=== PATIENT | male | born 1940 | race Two or more races ===

== ENCOUNTER 2017-09-03 02:54 | Inpatient (IN) ==
[2017-09-03] MEDS ORDERED: SODIUM CHLORIDE 0.9% 1,000 ML IV PRN (04:16)
[2017-09-03] MEDS ORDERED: PAPAVERINE 60 MG/2 ML VIAL ONE (04:43)
[2017-09-03] MEDS ORDERED: VANCOMYCIN 1,000 MG VIAL ONE (04:44)
[2017-09-03] MEDS ORDERED: CEFUROXIME 1,500 MG VIAL ONE (05:08)
[2017-09-03] MEDS ORDERED: TRANEXAMIC ACID 1,000 MG/10 ML VIAL IV ONE (05:14)
[2017-09-03 06:19] LABS: ABG Base Excess -1.2 MMOL/L (-2.5-2.5); ABG HCO3 23.5 MMOL/L (20-26); ABG Oxygen Saturation 99.8 % (95-100); ABG PCO2 41.8 MM HG (35-48); ABG TCO2 20.7 MMOL/L (23-27); Glucose Heart Surgery 135 MG/DL (74-106); Hematocrit Heart Surgery 45.3 PERCENT (42-52); Hemoglobin Heart Surgery 14.8 G/DL (14.0-18.0); Ionized Calcium Arterial 1.15 MMOL/L (1.21-1.46); PCO2 Patient Temp Arterial 41.8 MMHG; Patient Temperature 37 CELCIUS; Potassium Heart/CVR 3.6 MMOL/L (3.5-5.1); Sodium Heart/CVR 138 MMOL/L (135-145)
[2017-09-03] MEDS ORDERED: NITROPRUSSIDE 50 MG/2 ML VIAL ONE (06:59)
[2017-09-03] MEDS ORDERED: POTASSIUM CHLORIDE RIDER 100 ML IV ONE (06:59)
[2017-09-03] MEDS ORDERED: CALCIUM CHLORIDE 1,000 MG/10 ML SYRINGE IV ONE (06:59)
[2017-09-03] MEDS ORDERED: PHENYLEPHRINE DRIP 40 MG/250 ML PREMIX IV ONE (06:59)
[2017-09-03] MEDS ORDERED: ALBUMIN 5% 12.5 GM/250 ML VIAL IV ONE (07:29)
[2017-09-03] MEDS ORDERED: MIDAZOLAM 10 MG/2 ML VIAL ONE ×2 (07:30→07:40)
[2017-09-03] MEDS ORDERED: HEPARIN/NACL 0.9% 2 UNITS/ML 1,000 ML IV ONE (07:39)
[2017-09-03] MEDS ORDERED: CALCIUM CHLORIDE 1,000 MG/10 ML VIAL IV ONE (07:39)
[2017-09-03] MEDS ORDERED: PHENYLEPHRINE DRIP 20 MG/250 ML PREMIX IV ONE (07:39)
[2017-09-03] MEDS ORDERED: VECURONIUM 10 MG VIAL IV ONE (07:40)
[2017-09-03] MEDS ORDERED: ETOMIDATE 40 MG/20 ML VIAL IV ONE (07:40)
[2017-09-03] MEDS ORDERED: MIDAZOLAM 2 MG/2 ML VIAL ONE (07:40)
[2017-09-03] MEDS ORDERED: NITROGLYCERIN DRIP 50 MG/250 ML BOTTLE IV ONE (07:41)
[2017-09-03] MEDS ORDERED: SODIUM CHLORIDE 0.9% 1,000 ML IV ONE (07:41)
[2017-09-03] MEDS ORDERED: LACTATED RINGERS 1,000 ML IV ONE (07:41)
[2017-09-03 07:44] LABS: Hematocrit Heart Surgery 19.7 PERCENT (42-52); PCO2 Patient Temp Venous 37.9 MM HG; PH Patient Temp Venous 7.428; PO2 Patient Temp Venous 46.7 MM HG; Potassium Heart/CVR 4.1 MMOL/L (3.5-5.1); VBG Base Excess 0.8 MEQ/L (0-4); VBG PCO2 37.9 MMHG (41-51); VBG PH 7.428; VBG PO2 46.7 MMHG (17-40)
[2017-09-03 07:45] LABS: Hemoglobin Heart Surgery 6.3 G/DL (14.0-18.0)
[2017-09-03 08:11] LABS: Hematocrit Heart Surgery 19.5 PERCENT (42-52); PCO2 Patient Temp Venous 33.9 MM HG; PH Patient Temp Venous 7.467; PO2 Patient Temp Venous 38.5 MM HG; Potassium Heart/CVR 4.2 MMOL/L (3.5-5.1); VBG HCO3 25.1 MEQ/L (24-28); VBG Oxygen Saturation 77.2 %; VBG PCO2 35.6 MMHG (41-51); VBG PH 7.452; VBG PO2 41.2 MMHG (17-40)
[2017-09-03 08:14] LABS: Hemoglobin Heart Surgery 6.2 G/DL (14.0-18.0)
[2017-09-03] MEDS ORDERED: DOBUTamine 500 MG/250 ML PREMIX IV ONE ×2 (08:18→09:07)
[2017-09-03] MEDS ORDERED: FAMOTIDINE 20 MG/2 ML VIAL IV ONE (08:47)
[2017-09-03] MEDS ORDERED: diphenhydrAMINE 50 MG/1 ML VIAL ONE (08:47)
[2017-09-03 09:02] LABS: ABG Base Excess -3.6 MMOL/L (-2.5-2.5); ABG HCO3 21.4 MMOL/L (20-26); ABG Oxygen Saturation 99.8 % (95-100); ABG PH 7.352 (7.35-7.45); Glucose Heart Surgery 201 MG/DL (74-106); Hematocrit Heart Surgery 28.1 PERCENT (42-52); Hemoglobin Heart Surgery 9.1 G/DL (14.0-18.0); Ionized Calcium Arterial 1.23 MMOL/L (1.21-1.46); PH Patient Temp Arterial 7.352; Patient Temperature 37 CELCIUS; Potassium Heart/CVR 3.7 MMOL/L (3.5-5.1); Sodium Heart/CVR 136 MMOL/L (135-145)
[2017-09-03] MEDS ORDERED: ALBUMIN 25% 25 GM/100 ML VIAL IV ONE (09:33)
[2017-09-03] MEDS ORDERED: MAGNESIUM SULFATE 1 GM/2 ML VIAL ONE (09:33)
[2017-09-03] MEDS ORDERED: FUROSEMIDE 20 MG/2 ML VIAL ONE (09:33)
[2017-09-03] MEDS ORDERED: DEXTROSE 5% KCL 20 MEQ 20 MEQ/1,000 ML BAG IV ONE (09:33)
[2017-09-03] MEDS ORDERED: HEPARIN 10,000 UNIT/10 ML VIAL ONE (09:33)
[2017-09-03] MEDS ORDERED: PROTAMINE SULFATE 250 MG/25 ML VIAL IV ONE (09:33)
[2017-09-03] MEDS ORDERED: SODIUM BICARBONATE 50 MEQ/50 ML SYRINGE IV ONE ×2 (09:33→16:21)
[2017-09-03] MEDS ORDERED: methylPREDNISolone SOD SUC 1,000 MG/8 ML VIAL ONE (09:33)
[2017-09-03] MEDS ORDERED: MANNITOL 12.5 GM/50 ML VIAL IV ONE (09:33)
[2017-09-03] MEDS ORDERED: PROTAMINE SULFATE 50 MG/5 ML VIAL IV ONE ×2 (09:35→09:48)
[2017-09-03] MEDS ORDERED: DEXTROSE 50% 25 GM/50 ML VIAL IV PRN ×2 (09:37)
[2017-09-03] MEDS ORDERED: MAGNESIUM SULF RIDER 4 GM in PREMIX 1 EACH IV PRN (09:37)
[2017-09-03] MEDS ORDERED: POTASSIUM CHLORIDE RIDER 10 MEQ in PREMIX 1 EACH IV PRN (09:37)
[2017-09-03] MEDS ORDERED: VECURONIUM 10 MG VIAL IV PRN ×2 (09:37)
[2017-09-03] MEDS ORDERED: ACETAMINOPHEN 650 MG SUPP RECTAL PRN (09:37)
[2017-09-03] MEDS ORDERED: INSULIN REGULAR 100 UNIT/ML IV ONE (09:37)
[2017-09-03] MEDS ORDERED: NITROPRUSSIDE 100 MG in DEXTROSE 5% 250 ML IV PRN (09:37)
[2017-09-03] MEDS ORDERED: MAGNESIUM SULF RIDER 2 GM in PREMIX 1 EACH IV PRN (09:37)
[2017-09-03] MEDS ORDERED: LACTATED RINGERS 250 ML IV PRN (09:37)
[2017-09-03] MEDS ORDERED: INSULIN REGULAR 100 UNIT/ML IV PRN (09:37)
[2017-09-03] MEDS ORDERED: MIDAZOLAM 2 MG/2 ML VIAL IV PRN (09:37)
[2017-09-03] MEDS ORDERED: PHENYLEPHRINE DRIP 40 MG/250 ML PREMIX IV PRN (09:37)
[2017-09-03] MEDS ORDERED: CALCIUM CHLORIDE 1,000 MG/10 ML SYRINGE IV PRN (09:37)
[2017-09-03] MEDS ORDERED: AMIODARONE 150 MG/3 ML VIAL ONE (09:38)
[2017-09-03] MEDS ORDERED: ePHEDrine 50 MG/ML AMP ONE (09:38)
[2017-09-03] MEDS ORDERED: SEVOFLURANE 1 UNIT/15 MINUTE INH ONE (09:38)
[2017-09-03 09:47] LABS: ABG Base Excess -3.4 MMOL/L (-2.5-2.5); ABG HCO3 21.6 MMOL/L (20-26); ABG Oxygen Saturation 99.8 % (95-100); ABG PCO2 37.3 MM HG (35-48); ABG PH 7.369 (7.35-7.45); ABG TCO2 19.9 MMOL/L (23-27); Glucose Heart Surgery 174 MG/DL (74-106); Hematocrit Heart Surgery 28.2 PERCENT (42-52); Hemoglobin Heart Surgery 9.1 G/DL (14.0-18.0)
[2017-09-03] MEDS ORDERED: INSULIN REGULAR DRIP 100 ML IV SCH (10:00)
[2017-09-03] MEDS: DOBUTamine 500 MG/250 ML PREMIX IV SCH (10:00)
[2017-09-03] MEDS: SODIUM CHLORIDE 0.45% 1,000 ML IV SCH ×2 (10:01)
[2017-09-03 10:03] LABS: Basophils % 0.2 % (0.0-0.8); Eosinophils # 0.1 10*3/uL (0.0-0.87); Eosinophils % 0.5 % (0.00-10.9); Hematocrit 27.7 VOL% (42.0-52.0); Immature Granulocytes % 0.4 %; Immature Granulocytes Absolute 0.07 #; Lymphocytes % 12.1 % (21.2-54.2); Mean Corpuscular HGB Conc 32.5 GM/DL (32-36); Mean Corpuscular Hemoglobin 30 PG (27-34); Mean Corpuscular Volume 91.4 FL (87-102); Mean Platelet Volume 11.7 FL (9.6-12.0); Monocytes # 0.7 10*3/uL (0.11-0.8); Neutrophils # 13.7 10*3/uL (1.4-7.4); Neutrophils % 82.8 % (38.7-73.9); Platelet Count 197 T/CUMM (130-400); Red Blood Count 3.03 MC/CUMM (3.8-5.5); White Blood Count 16.5 T/CUMM (4-12)
[2017-09-03 10:16] LABS: INR 1.1; PT Patient Result 11.8 SECS
[2017-09-03] MEDS: MIDAZOLAM 10 MG/2 ML VIAL IV PRN ×2 (10:30→15:10)
[2017-09-03] MEDS: POTASSIUM CHLORIDE RIDER 20 MEQ in PREMIX 1 EACH IV PRN ×4 (10:34→16:32)
[2017-09-03 10:36] LABS: Albumin 2.9 G/DL (3.4-5.0); Bilirubin,Total 0.9 MG/DL (0.2-1.0); Calcium 9.2 MG/DL (8.5-10.1); Magnesium 2.4 MG/DL (1.8-2.4); Osmolality,Calculated 284.4 MOS/KG (273-304); Potassium 4.1 MMOL/L (3.5-5.1); Total Protein 5.7 G/DL (6.4-8.3)
[2017-09-03 10:42] LABS: CKMB % 8.7 %
[2017-09-03 10:44] LABS: Troponin I Only 1.92 NG/ML (0.00-0.045)
[2017-09-03] MEDS: KETOROLAC 30 MG/1 ML VIAL IV SCH ×2 (10:52→15:54)
[2017-09-03] MEDS: LACTATED RINGERS 1,000 ML IV PRN ×3 (11:00→15:23)
[2017-09-03 11:27] LABS: ABG Base Excess -4.7 MMOL/L (-2.5-2.5); ABG HCO3 20.5 MMOL/L (20-26); ABG Oxygen Saturation 99.8 % (95-100); ABG PCO2 37.4 MM HG (35-48); ABG PH 7.346 (7.35-7.45); ABG TCO2 18.7 MMOL/L (23-27); Glucose Heart Surgery 177 MG/DL (74-106); Hematocrit Heart Surgery 30.8 PERCENT (42-52)
[2017-09-03] MEDS: ALBUMIN 5% 12.5 GM in PREMIX 1 EACH IV PRN ×4 (11:30→17:25)
[2017-09-03 11:47] LABS: VBG Base Excess -4.1 MEQ/L (0-4); VBG HCO3 20.6 MEQ/L (24-28); VBG Oxygen Saturation 68.9 %; VBG PCO2 45.6 MMHG (41-51); VBG PH 7.299
[2017-09-03 12:30] LABS: Band Neutrophils 9 % (0-10); Eosinophils 1 % (0-10); Lymphocytes 12 % (20-55); Segmented Neutrophils 76 % (50-85); Total Cells Counted 100
[2017-09-03 12:31] LABS: Hypochromasia 1+; Microcytosis 1+; Platelet Estimate Adequate
[2017-09-03] MEDS ORDERED: AMIODARONE INJ 450 MG in DEXTROSE 5% 241 ML IV SCH (14:00)
[2017-09-03 14:08] LABS: ABG Base Excess -3.2 MMOL/L (-2.5-2.5); ABG HCO3 21.8 MMOL/L (20-26); ABG Oxygen Saturation 99.2 % (95-100); ABG PCO2 37.1 MM HG (35-48); ABG PH 7.373 (7.35-7.45); Glucose Heart Surgery 136 MG/DL (74-106); Hematocrit Heart Surgery 27.8 PERCENT (42-52); Potassium Heart/CVR 4.1 MMOL/L (3.5-5.1)
[2017-09-03] MEDS: PROPOFOL 1,000 MG/100 ML BOTTLE IV SCH (15:45)
[2017-09-03 16:10] LABS: ABG Base Excess -6.2 MMOL/L (-2.5-2.5); ABG HCO3 19.4 MMOL/L (20-26); ABG Oxygen Saturation 99.1 % (95-100); ABG PCO2 39.5 MM HG (35-48); ABG PH 7.306 (7.35-7.45); Glucose Heart Surgery 137 MG/DL (74-106); Hematocrit Heart Surgery 32.6 PERCENT (42-52); Hemoglobin Heart Surgery 10.5 G/DL (14.0-18.0); Potassium Heart/CVR 4.3 MMOL/L (3.5-5.1)
[2017-09-03 17:07] LABS: ABG Base Excess -3.7 MMOL/L (-2.5-2.5); ABG HCO3 21.3 MMOL/L (20-26); ABG Oxygen Saturation 99.3 % (95-100); ABG PCO2 38.7 MM HG (35-48); ABG PH 7.352 (7.35-7.45); ABG TCO2 19.6 MMOL/L (23-27); Glucose Heart Surgery 129 MG/DL (74-106); Hematocrit Heart Surgery 31.7 PERCENT (42-52); Hemoglobin Heart Surgery 10.3 G/DL (14.0-18.0); Potassium Heart/CVR 5.4 MMOL/L (3.5-5.1)
[2017-09-03] MEDS ORDERED: FUROSEMIDE 40 MG/4 ML VIAL ONE (17:25)
[2017-09-03] MEDS: CEFUROXIME INJ 1,500 MG in SYRINGE 1 EACH IV SCH (17:33)
[2017-09-03] MEDS ORDERED: FUROSEMIDE 40 MG/4 ML VIAL IV ONE (17:34)
[2017-09-03] MEDS: MORPHINE 10 MG/1 ML VIAL IV PRN (19:36)
[2017-09-03] MEDS: AMIODARONE INJ 450 MG in DEXTROSE 5% 241 ML IV SCH (20:32)
[2017-09-03] MEDS: CHLORHEXIDINE 0.12% ORAL RINSE 60 ML BOTTLE SWISH/SPIT SCH (20:35)
[2017-09-03 20:42] LABS: CKMB % 9.7 %
[2017-09-03 20:43] LABS: Troponin I Only 7.3 NG/ML (0.00-0.045)
[2017-09-04] MEDS: PROPOFOL 1,000 MG/100 ML BOTTLE IV SCH ×4 (00:32→22:37)
[2017-09-04 03:16] LABS: ABG Base Excess -1.6 MMOL/L (-2.5-2.5); ABG HCO3 23.1 MMOL/L (20-26); ABG Oxygen Saturation 98.3 % (95-100); ABG PCO2 39.3 MM HG (35-48); ABG PH 7.388 (7.35-7.45); ABG PO2 129.7 MM HG (80-95); ABG TCO2 24.4 MMOL/L (23-27); Glucose Heart Surgery 129 MG/DL (74-106); Hemoglobin Heart Surgery 11.1 G/DL (14.0-18.0); Potassium Heart/CVR 4.5 MMOL/L (3.5-5.1)
[2017-09-04 03:32] LABS: Basophils % 0.1 % (0.0-0.8); Hematocrit 31.5 VOL% (42.0-52.0); Hemoglobin 10.5 GM/DL (14.0-18.0); Immature Granulocytes % 0.4 %; Immature Granulocytes Absolute 0.05 #; Lymphocytes # 0.9 10*3/uL (1.4-4.0); Lymphocytes % 7.2 % (21.2-54.2); Mean Corpuscular HGB Conc 33.3 GM/DL (32-36); Mean Corpuscular Hemoglobin 29 PG (27-34); Mean Corpuscular Volume 88.2 FL (87-102); Mean Platelet Volume 12.3 FL (9.6-12.0); Monocytes # 0.6 10*3/uL (0.11-0.8); Monocytes % 4.3 % (1.7-12.7); Neutrophils # 11.5 10*3/uL (1.4-7.4); Platelet Count 148 T/CUMM (130-400); Red Blood Count 3.57 MC/CUMM (3.8-5.5); Red Cell Distribution Width 15.7 % (9.3-17.3); White Blood Count 13.1 T/CUMM (4-12)
[2017-09-04 03:53] LABS: Albumin 3.8 G/DL (3.4-5.0); Bilirubin,Direct 0.48 MG/DL (0.0-0.20); Calcium 8.9 MG/DL (8.5-10.1); Magnesium 1.9 MG/DL (1.8-2.4); Osmolality,Calculated 283.4 MOS/KG (273-304); Potassium 4.5 MMOL/L (3.5-5.1)
[2017-09-04 03:54] LABS: Band Neutrophils 8 % (0-10); CKMB % 11.9 %; Lymphocytes 7 % (20-55); Platelet Estimate Normal; Segmented Neutrophils 85 % (50-85); Total Cells Counted 100
[2017-09-04 04:27] LABS: Troponin I Only 13.3 NG/ML (0.00-0.045)
[2017-09-04] MEDS: FUROSEMIDE 40 MG/4 ML VIAL IV PRN (06:09)
[2017-09-04] MEDS: CEFUROXIME INJ 1,500 MG in SYRINGE 1 EACH IV SCH ×2 (06:15→16:46)
[2017-09-04 09:23] LABS: ABG Base Excess -1.1 MMOL/L (-2.5-2.5); ABG HCO3 23.5 MMOL/L (20-26); ABG Oxygen Saturation 98.9 % (95-100); ABG PCO2 40.1 MM HG (35-48); ABG PH 7.383 (7.35-7.45); ABG TCO2 21.6 MMOL/L (23-27); Glucose Heart Surgery 140 MG/DL (74-106); Hematocrit Heart Surgery 32.4 PERCENT (42-52); Hemoglobin Heart Surgery 10.5 G/DL (14.0-18.0); Potassium Heart/CVR 4.4 MMOL/L (3.5-5.1)
[2017-09-04] MEDS: CHLORHEXIDINE 0.12% ORAL RINSE 60 ML BOTTLE SWISH/SPIT SCH ×2 (09:25→20:14)
[2017-09-04] MEDS: POTASSIUM CHLORIDE RIDER 20 MEQ in PREMIX 1 EACH IV PRN (09:28)
[2017-09-04 09:49] LABS: CKMB % 12.7 %
[2017-09-04 09:57] LABS: Troponin I Only 12.7 NG/ML (0.00-0.045)
[2017-09-04] MEDS: MORPHINE 10 MG/1 ML VIAL IV PRN (10:00)
[2017-09-04] MEDS: SODIUM CHLORIDE 0.45% 1,000 ML IV SCH ×2 (10:07→10:22)
[2017-09-04] MEDS: AMIODARONE INJ 450 MG in DEXTROSE 5% 241 ML IV SCH (10:11)
[2017-09-04] MEDS: INSULIN REGULAR 100 UNIT/ML SUBCUT SCH ×3 (12:24→20:14)
[2017-09-04] MEDS ORDERED: DEXMEDETOMIDINE 200 MCG in SODIUM CHLORIDE 0.9% 48 ML IV SCH (12:30)
[2017-09-04] MEDS: DOBUTamine 500 MG/250 ML PREMIX IV SCH (12:35)
[2017-09-04] MEDS ORDERED: FUROSEMIDE 40 MG/4 ML VIAL IV ONE (18:34)
[2017-09-04] MEDS ORDERED: FUROSEMIDE 40 MG/4 ML VIAL IV PRN (18:35)
[2017-09-05] MEDS: INSULIN REGULAR 100 UNIT/ML SUBCUT SCH ×6 (00:54→20:13)
[2017-09-05] MEDS: AMIODARONE INJ 450 MG in DEXTROSE 5% 241 ML IV SCH (01:57)
[2017-09-05 04:24] LABS: ABG Base Excess -0.6 MMOL/L (-2.5-2.5); ABG Oxygen Saturation 98.8 % (95-100); ABG PCO2 40.2 MM HG (35-48); ABG PH 7.389 (7.35-7.45); ABG TCO2 21.9 MMOL/L (23-27); Basophils % 0.1 % (0.0-0.8); Glucose Heart Surgery 138 MG/DL (74-106); Hematocrit 30.7 VOL% (42.0-52.0); Hematocrit Heart Surgery 33.6 PERCENT (42-52); Hemoglobin Heart Surgery 10.9 G/DL (14.0-18.0); Immature Granulocytes % 0.8 %; Immature Granulocytes Absolute 0.12 #; Lymphocytes # 1.1 10*3/uL (1.4-4.0); Lymphocytes % 7.2 % (21.2-54.2); Mean Corpuscular HGB Conc 32.6 GM/DL (32-36); Mean Corpuscular Hemoglobin 29 PG (27-34); Mean Corpuscular Volume 89.5 FL (87-102); Mean Platelet Volume 12.6 FL (9.6-12.0); Monocytes # 1.2 10*3/uL (0.11-0.8); Monocytes % 8.1 % (1.7-12.7); Neutrophils # 12.5 10*3/uL (1.4-7.4); Neutrophils % 83.8 % (38.7-73.9); Platelet Count 137 T/CUMM (130-400); Potassium Heart/CVR 4.4 MMOL/L (3.5-5.1); Red Blood Count 3.43 MC/CUMM (3.8-5.5); Red Cell Distribution Width 16.2 % (9.3-17.3); White Blood Count 14.9 T/CUMM (4-12)
[2017-09-05 04:44] LABS: Albumin 3.4 G/DL (3.4-5.0); Bilirubin,Direct 0.22 MG/DL (0.0-0.20); Bilirubin,Total 0.5 MG/DL (0.2-1.0); Calcium 8.4 MG/DL (8.5-10.1); Osmolality,Calculated 286.4 MOS/KG (273-304); Potassium 4.6 MMOL/L (3.5-5.1)
[2017-09-05] MEDS: ONDANSETRON 4 MG/2 ML VIAL IV PRN (04:46)
[2017-09-05] MEDS: MORPHINE 10 MG/1 ML VIAL IV PRN ×6 (04:47→17:07)
[2017-09-05] MEDS: CEFUROXIME INJ 1,500 MG in SYRINGE 1 EACH IV SCH ×2 (05:28→17:11)
[2017-09-05] MEDS: FUROSEMIDE 40 MG/4 ML VIAL IV PRN (05:29)
[2017-09-05] MEDS: PROPOFOL 1,000 MG/100 ML BOTTLE IV SCH ×4 (05:36→20:47)
[2017-09-05] MEDS: ASPIRIN CHEW 81 MG TABLET PO SCH (08:13)
[2017-09-05] MEDS: CHLORHEXIDINE 0.12% ORAL RINSE 60 ML BOTTLE SWISH/SPIT SCH ×2 (08:20→21:06)
[2017-09-05 10:30] LABS: ABG Base Excess 1.2 MMOL/L (-2.5-2.5); ABG HCO3 26.5 MMOL/L (20-26); ABG Oxygen Saturation 98.1 % (95-100); ABG PCO2 44.9 MM HG (35-48); ABG PH 7.389 (7.35-7.45); ABG TCO2 27.9 MMOL/L (23-27)
[2017-09-05] MEDS: SODIUM CHLORIDE 0.45% 1,000 ML IV SCH (12:41)
[2017-09-05] MEDS: DOBUTamine 500 MG/250 ML PREMIX IV SCH (16:30)
[2017-09-05] MEDS ORDERED: FUROSEMIDE 40 MG/4 ML VIAL IV PRN (20:21)
[2017-09-05] MEDS: ATORVASTATIN 80 MG TABLET PO SCH (21:05)
[2017-09-06] MEDS: INSULIN REGULAR 100 UNIT/ML SUBCUT SCH ×6 (00:29→21:22)
[2017-09-06] MEDS: PROPOFOL 1,000 MG/100 ML BOTTLE IV SCH (02:03)
[2017-09-06 03:38] LABS: Hemoglobin 9.9 GM/DL (14.0-18.0); Immature Granulocytes % 0.7 %; Immature Granulocytes Absolute 0.09 #; Lymphocytes # 0.9 10*3/uL (1.4-4.0); Mean Corpuscular Hemoglobin 29 PG (27-34); Mean Platelet Volume 12.8 FL (9.6-12.0); Monocytes # 0.9 10*3/uL (0.11-0.8); Monocytes % 6.4 % (1.7-12.7); Neutrophils # 11.5 10*3/uL (1.4-7.4); Neutrophils % 85.9 % (38.7-73.9); Platelet Count 120 T/CUMM (130-400); Red Blood Count 3.37 MC/CUMM (3.8-5.5); Red Cell Distribution Width 15.5 % (9.3-17.3); White Blood Count 13.4 T/CUMM (4-12)
[2017-09-06] MEDS: MORPHINE 10 MG/1 ML VIAL IV PRN ×3 (03:43→21:32)
[2017-09-06 03:50] LABS: ABG Base Excess 3.7 MMOL/L (-2.5-2.5); ABG HCO3 27.6 MMOL/L (20-26); ABG PH 7.467 (7.35-7.45); ABG TCO2 28.8 MMOL/L (23-27); Glucose Heart Surgery 127 MG/DL (74-106); Hemoglobin Heart Surgery 11.3 G/DL (14.0-18.0); Potassium Heart/CVR 4.2 MMOL/L (3.5-5.1)
[2017-09-06 04:07] LABS: Albumin 3.2 G/DL (3.4-5.0); Bilirubin,Direct 0.26 MG/DL (0.0-0.20); Bilirubin,Total 0.7 MG/DL (0.2-1.0); Calcium 8.5 MG/DL (8.5-10.1); Osmolality,Calculated 280.8 MOS/KG (273-304); Potassium 4.3 MMOL/L (3.5-5.1); Total Protein 5.7 G/DL (6.4-8.3)
[2017-09-06 04:20] LABS: Risk Ratio 3.43; VLDL CHOLESTEROL 42.4 MG/DL
[2017-09-06] MEDS: POTASSIUM CHLORIDE RIDER 20 MEQ in PREMIX 1 EACH IV PRN (04:53)
[2017-09-06] MEDS: ONDANSETRON 4 MG/2 ML VIAL IV PRN ×2 (04:54→15:52)
[2017-09-06] MEDS: CEFUROXIME INJ 1,500 MG in SYRINGE 1 EACH IV SCH ×2 (05:28→17:53)
[2017-09-06] MEDS: ASPIRIN CHEW 81 MG TABLET PO SCH (08:28)
[2017-09-06] MEDS: CHLORHEXIDINE 0.12% ORAL RINSE 60 ML BOTTLE SWISH/SPIT SCH ×2 (08:30→21:32)
[2017-09-06 09:23] LABS: ABG Base Excess 2.6 MMOL/L (-2.5-2.5); ABG HCO3 26.7 MMOL/L (20-26); ABG Oxygen Saturation 96.7 % (95-100); ABG PH 7.421 (7.35-7.45); ABG PO2 88.9 MM HG (80-95); ABG TCO2 24.4 MMOL/L (23-27)
[2017-09-06 10:54] LABS: ABG HCO3 27.1 MMOL/L (20-26); ABG Oxygen Saturation 96.1 % (95-100); ABG PCO2 47.7 MM HG (35-48); ABG PH 7.387 (7.35-7.45); ABG PO2 85.8 MM HG (80-95); ABG TCO2 25.8 MMOL/L (23-27)
[2017-09-06] MEDS: ALBUTEROL/IPRATROPIUM 3 ML NEB RESP TX SCH ×3 (11:09→19:37)
[2017-09-06] MEDS: DOBUTamine 500 MG/250 ML PREMIX IV SCH (12:39)
[2017-09-06] MEDS: SODIUM CHLORIDE 0.45% 1,000 ML IV SCH (14:10)
[2017-09-06] MEDS ORDERED: SODIUM CHLOR 0.45% KCL 20 MEQ 20 MEQ/1,000 ML BAG IV SCH (14:30)
[2017-09-06] MEDS: ATORVASTATIN 80 MG TABLET PO SCH (21:33)
[2017-09-07] MEDS: MORPHINE 10 MG/1 ML VIAL IV PRN ×2 (00:45→07:02)
[2017-09-07] MEDS: ONDANSETRON 4 MG/2 ML VIAL IV PRN (02:30)
[2017-09-07 04:11] LABS: ABG Base Excess 3.8 MMOL/L (-2.5-2.5); ABG HCO3 29.1 MMOL/L (20-26); ABG Oxygen Saturation 95.5 % (95-100); ABG PCO2 46.6 MM HG (35-48); ABG PH 7.413 (7.35-7.45); ABG PO2 85.5 MM HG (80-95); ABG TCO2 30.5 MMOL/L (23-27)
[2017-09-07 06:10] LABS: Basophils % 0.1 % (0.0-0.8); Hematocrit 35.3 VOL% (42.0-52.0); Hemoglobin 11.3 GM/DL (14.0-18.0); Immature Granulocytes % 0.4 %; Immature Granulocytes Absolute 0.05 #; Lymphocytes # 1.3 10*3/uL (1.4-4.0); Lymphocytes % 10.6 % (21.2-54.2); Mean Corpuscular Hemoglobin 29 PG (27-34); Mean Platelet Volume 13.5 FL (9.6-12.0); Monocytes # 1.1 10*3/uL (0.11-0.8); Monocytes % 8.7 % (1.7-12.7); Neutrophils % 80.2 % (38.7-73.9); Platelet Count 157 T/CUMM (130-400); Red Blood Count 3.88 MC/CUMM (3.8-5.5); Red Cell Distribution Width 15.3 % (9.3-17.3); White Blood Count 12.4 T/CUMM (4-12)
[2017-09-07 06:46] LABS: Calcium 9.4 MG/DL (8.5-10.1); Magnesium 2.5 MG/DL (1.8-2.4); Osmolality,Calculated 289.4 MOS/KG (273-304); Potassium 4.2 MMOL/L (3.5-5.1)
[2017-09-07 06:47] LABS: Band Neutrophils 1 % (0-10); Lymphocytes 11 % (20-55); Platelet Estimate Decreased; Segmented Neutrophils 80 % (50-85); Total Cells Counted 100
[2017-09-07] MEDS: CEFUROXIME INJ 1,500 MG in SYRINGE 1 EACH IV SCH (07:03)
[2017-09-07] MEDS: ALBUTEROL/IPRATROPIUM 3 ML NEB RESP TX SCH ×4 (07:22→19:24)
[2017-09-07] MEDS ORDERED: MORPHINE 2 MG/1 ML SYRINGE IV PRN (08:10)
[2017-09-07] MEDS ORDERED: DEXTROSE 50% 25 GM/50 ML VIAL IV PRN ×2 (08:10)
[2017-09-07] MEDS ORDERED: ONDANSETRON 4 MG/2 ML VIAL IV PRN (08:10)
[2017-09-07] MEDS ORDERED: MAGNESIUM SULF RIDER 2 GM in PREMIX 1 EACH IV PRN (08:10)
[2017-09-07] MEDS ORDERED: GLUCAGON 1 MG VIAL IM PRN ×2 (08:10)
[2017-09-07] MEDS ORDERED: MAGNESIUM HYDROXIDE SUSP 30 ML UDCUP PO PRN (08:10)
[2017-09-07] MEDS ORDERED: MAGNESIUM SULF RIDER 4 GM in PREMIX 1 EACH IV PRN (08:10)
[2017-09-07] MEDS ORDERED: ALUMINUM/MAGNES/SIMETH MAX STR 30 ML UDCUP PO PRN (08:10)
[2017-09-07] MEDS ORDERED: POTASSIUM CHLORIDE 20 MEQ TABLET PO PRN (08:10)
[2017-09-07] MEDS: PANTOPRAZOLE 40 MG TABLET PO SCH (08:41)
[2017-09-07] MEDS: ASPIRIN CHEW 81 MG TABLET PO SCH (08:41)
[2017-09-07] MEDS: DOCUSATE SODIUM 100 MG CAPSULE PO SCH (08:41)
[2017-09-07] MEDS: LISINOPRIL 5 MG TABLET PO SCH (08:41)
[2017-09-07] MEDS: metFORMIN 500 MG TABLET PO SCH (08:41)
[2017-09-07] MEDS: CHLORHEXIDINE 0.12% ORAL RINSE 60 ML BOTTLE SWISH/SPIT SCH ×2 (08:42→22:06)
[2017-09-07] MEDS: FERROUS SULFATE 325 MG TABLET PO SCH (08:42)
[2017-09-07] MEDS: METOPROLOL TARTRATE 25 MG TABLET PO SCH ×2 (08:42→22:03)
[2017-09-07] MEDS: SODIUM CHLOR 0.45% KCL 20 MEQ 20 MEQ/1,000 ML BAG IV SCH (08:42)
[2017-09-07] MEDS: oxyCODONE/ACETAMINOPHEN 5-325 MG TABLET PO PRN ×2 (08:47→22:02)
[2017-09-07] MEDS ORDERED: ASPIRIN CHEW 81 MG TABLET PO SCH (09:00)
[2017-09-07] MEDS ORDERED: ATORVASTATIN 80 MG TABLET PO SCH (09:00)
[2017-09-07] MEDS: INSULIN REGULAR 100 UNIT/ML SUBCUT SCH (09:20)
[2017-09-07] MEDS ORDERED: FUROSEMIDE 40 MG/4 ML VIAL IV ONE (10:20)
[2017-09-07] MEDS: ISOSORBIDE MONONITRATE 30 MG TABLET PO SCH (10:45)
[2017-09-07] MEDS: ATORVASTATIN 80 MG TABLET PO SCH (22:02)
[2017-09-08 03:38] LABS: ABG Base Excess 7.3 MMOL/L (-2.5-2.5); ABG Oxygen Saturation 94.7 % (95-100); ABG PCO2 48.3 MM HG (35-48); ABG PH 7.438 (7.35-7.45); ABG PO2 73.6 MM HG (80-95); ABG TCO2 29.2 MMOL/L (23-27); Allen Test Positive
[2017-09-08] MEDS ORDERED: FUROSEMIDE 40 MG/4 ML VIAL IV ONE (06:00)
[2017-09-08 06:20] LABS: Basophils % 0.1 % (0.0-0.8); Hematocrit 34.3 VOL% (42.0-52.0); Hemoglobin 11.1 GM/DL (14.0-18.0); Immature Granulocytes % 0.3 %; Immature Granulocytes Absolute 0.03 #; Lymphocytes # 1.3 10*3/uL (1.4-4.0); Mean Corpuscular HGB Conc 32.4 GM/DL (32-36); Mean Corpuscular Hemoglobin 29 PG (27-34); Mean Corpuscular Volume 90.7 FL (87-102); Mean Platelet Volume 12.3 FL (9.6-12.0); Monocytes # 0.8 10*3/uL (0.11-0.8); Neutrophils % 80.6 % (38.7-73.9); Platelet Count 163 T/CUMM (130-400); Red Blood Count 3.78 MC/CUMM (3.8-5.5); White Blood Count 11.2 T/CUMM (4-12)
[2017-09-08 06:49] LABS: Calcium 8.9 MG/DL (8.5-10.1); Magnesium 2.7 MG/DL (1.8-2.4); Osmolality,Calculated 290.4 MOS/KG (273-304)
[2017-09-08 06:52] LABS: Alanine Aminotransferase 36 U/L (16-61); Alkaline Phosphatase 107 U/L (45-117); Aspartate Amino Transferase 22 U/L (0-37); Calcium 9.1 MG/DL (8.5-10.1)
[2017-09-08 06:53] LABS: Albumin 3.4 G/DL (3.4-5.0); Bilirubin,Indirect 0.9 MG/DL (0.0-1.0); Blood Urea Nitrogen 43 MG/DL (7-18); Glucose 120 MG/DL (74-106); Magnesium 2.7 MG/DL (1.8-2.4); Osmolality,Calculated 288.5 MOS/KG (273-304); Potassium 3.9 MMOL/L (3.5-5.1); Sodium 139 MMOL/L (136-145); Total Protein 6.2 G/DL (6.4-8.3)
[2017-09-08] MEDS: ALBUTEROL/IPRATROPIUM 3 ML NEB RESP TX SCH ×4 (07:28→19:27)
[2017-09-08] MEDS: ASPIRIN CHEW 81 MG TABLET PO SCH (08:39)
[2017-09-08] MEDS: LISINOPRIL 5 MG TABLET PO SCH (08:39)
[2017-09-08] MEDS: PANTOPRAZOLE 40 MG TABLET PO SCH (08:39)
[2017-09-08] MEDS: METOPROLOL TARTRATE 25 MG TABLET PO SCH ×2 (08:39→20:47)
[2017-09-08] MEDS: ISOSORBIDE MONONITRATE 30 MG TABLET PO SCH (08:39)
[2017-09-08] MEDS: metFORMIN 500 MG TABLET PO SCH (08:39)
[2017-09-08] MEDS: FERROUS SULFATE 325 MG TABLET PO SCH (08:39)
[2017-09-08] MEDS: DOCUSATE SODIUM 100 MG CAPSULE PO SCH (08:40)
[2017-09-08] MEDS: SODIUM CHLOR 0.45% KCL 20 MEQ 20 MEQ/1,000 ML BAG IV SCH (08:40)
[2017-09-08] MEDS: CHLORHEXIDINE 0.12% ORAL RINSE 60 ML BOTTLE SWISH/SPIT SCH ×2 (08:40→20:48)
[2017-09-08] MEDS: oxyCODONE/ACETAMINOPHEN 5-325 MG TABLET PO PRN (20:42)
[2017-09-08] MEDS: ATORVASTATIN 80 MG TABLET PO SCH (20:47)
[2017-09-08] MEDS: ZALEPLON 5 MG CAPSULE PO PRN (20:47)
[2017-09-09 05:17] LABS: Basophils % 0.1 % (0.0-0.8); Eosinophils # 0.1 10*3/uL (0.0-0.87); Eosinophils % 0.4 % (0.00-10.9); Hematocrit 32.2 VOL% (42.0-52.0); Hemoglobin 10.5 GM/DL (14.0-18.0); Immature Granulocytes % 0.6 %; Immature Granulocytes Absolute 0.07 #; Lymphocytes # 1.8 10*3/uL (1.4-4.0); Lymphocytes % 15.1 % (21.2-54.2); Mean Corpuscular HGB Conc 32.6 GM/DL (32-36); Mean Corpuscular Hemoglobin 29 PG (27-34); Mean Corpuscular Volume 88.2 FL (87-102); Mean Platelet Volume 13.1 FL (9.6-12.0); Monocytes % 8.5 % (1.7-12.7); Neutrophils # 8.9 10*3/uL (1.4-7.4); Neutrophils % 75.3 % (38.7-73.9); Platelet Count 169 T/CUMM (130-400); Red Blood Count 3.65 MC/CUMM (3.8-5.5); Red Cell Distribution Width 14.8 % (9.3-17.3); White Blood Count 11.8 T/CUMM (4-12)
[2017-09-09 05:43] LABS: Calcium 8.5 MG/DL (8.5-10.1); Magnesium 2.7 MG/DL (1.8-2.4); Osmolality,Calculated 291.3 MOS/KG (273-304); Potassium 3.6 MMOL/L (3.5-5.1)
[2017-09-09 05:47] LABS: Alanine Aminotransferase 31 U/L (16-61); Albumin 3.2 G/DL (3.4-5.0); Alkaline Phosphatase 103 U/L (45-117); Aspartate Amino Transferase 20 U/L (0-37); Bilirubin,Indirect 0.5 MG/DL (0.0-1.0); Blood Urea Nitrogen 44 MG/DL (7-18); Calcium 8.7 MG/DL (8.5-10.1); Glucose 105 MG/DL (74-106); Magnesium 2.9 MG/DL (1.8-2.4); Osmolality,Calculated 289.4 MOS/KG (273-304); Potassium 3.5 MMOL/L (3.5-5.1); Sodium 140 MMOL/L (136-145); Total Protein 5.7 G/DL (6.4-8.3)
[2017-09-09] MEDS: ALBUTEROL/IPRATROPIUM 3 ML NEB RESP TX SCH ×4 (09:00→19:58)
[2017-09-09] MEDS: FERROUS SULFATE 325 MG TABLET PO SCH (09:52)
[2017-09-09] MEDS: ISOSORBIDE MONONITRATE 30 MG TABLET PO SCH (09:52)
[2017-09-09] MEDS: DOCUSATE SODIUM 100 MG CAPSULE PO SCH (09:52)
[2017-09-09] MEDS: METOPROLOL TARTRATE 25 MG TABLET PO SCH ×2 (09:52→21:42)
[2017-09-09] MEDS: CHLORHEXIDINE 0.12% ORAL RINSE 60 ML BOTTLE SWISH/SPIT SCH ×2 (09:52→21:42)
[2017-09-09] MEDS: ASPIRIN CHEW 81 MG TABLET PO SCH (09:52)
[2017-09-09] MEDS: LISINOPRIL 5 MG TABLET PO SCH (09:52)
[2017-09-09] MEDS: PANTOPRAZOLE 40 MG TABLET PO SCH (09:52)
[2017-09-09] MEDS: metFORMIN 500 MG TABLET PO SCH (09:54)
[2017-09-09] MEDS: KETOROLAC 15 MG/1 ML VIAL IV PRN (16:30)
[2017-09-09] MEDS: ACETAMINOPHEN 325 MG TABLET PO PRN (21:41)
[2017-09-09] MEDS: ATORVASTATIN 80 MG TABLET PO SCH (21:41)
[2017-09-09] MEDS: ZALEPLON 5 MG CAPSULE PO PRN (21:42)
[2017-09-10 07:31] LABS: Calcium 8.8 MG/DL (8.5-10.1); Magnesium 2.9 MG/DL (1.8-2.4); Osmolality,Calculated 291.4 MOS/KG (273-304); Potassium 3.8 MMOL/L (3.5-5.1)
[2017-09-10] MEDS: ALBUTEROL/IPRATROPIUM 3 ML NEB RESP TX SCH ×4 (07:43→20:24)
[2017-09-10] MEDS ORDERED: METOPROLOL SUCCINATE XL 25 MG TABLET PO SCH (09:00)
[2017-09-10] MEDS: DOCUSATE SODIUM 100 MG CAPSULE PO SCH (09:53)
[2017-09-10] MEDS: LISINOPRIL 5 MG TABLET PO SCH (09:53)
[2017-09-10] MEDS: ISOSORBIDE MONONITRATE 30 MG TABLET PO SCH (09:53)
[2017-09-10] MEDS: PANTOPRAZOLE 40 MG TABLET PO SCH (09:53)
[2017-09-10] MEDS: FERROUS SULFATE 325 MG TABLET PO SCH (09:53)
[2017-09-10] MEDS: metFORMIN 500 MG TABLET PO SCH (09:53)
[2017-09-10] MEDS: CHLORHEXIDINE 0.12% ORAL RINSE 60 ML BOTTLE SWISH/SPIT SCH ×2 (09:54→21:11)
[2017-09-10] MEDS: ASPIRIN CHEW 81 MG TABLET PO SCH (09:54)
[2017-09-10] MEDS: METOPROLOL SUCCINATE XL 25 MG TABLET PO SCH (12:49)
[2017-09-10] MEDS: ATORVASTATIN 80 MG TABLET PO SCH (21:10)
[2017-09-10] MEDS: ZALEPLON 5 MG CAPSULE PO PRN (21:11)
[2017-09-10] MEDS: KETOROLAC 15 MG/1 ML VIAL IV PRN (21:11)
[2017-09-11 03:16] LABS: Basophils % 0.1 % (0.0-0.8); Eosinophils # 0.6 10*3/uL (0.0-0.87); Eosinophils % 4.3 % (0.00-10.9); Hematocrit 32.9 VOL% (42.0-52.0); Hemoglobin 10.5 GM/DL (14.0-18.0); Immature Granulocytes % 0.7 %; Immature Granulocytes Absolute 0.09 #; Lymphocytes # 2.2 10*3/uL (1.4-4.0); Lymphocytes % 17.5 % (21.2-54.2); Mean Corpuscular HGB Conc 31.9 GM/DL (32-36); Mean Corpuscular Hemoglobin 29 PG (27-34); Mean Corpuscular Volume 89.6 FL (87-102); Mean Platelet Volume 12.6 FL (9.6-12.0); Monocytes # 0.9 10*3/uL (0.11-0.8); Monocytes % 6.9 % (1.7-12.7); Neutrophils % 70.5 % (38.7-73.9); Platelet Count 214 T/CUMM (130-400); Red Blood Count 3.67 MC/CUMM (3.8-5.5); Red Cell Distribution Width 15.2 % (9.3-17.3); White Blood Count 12.7 T/CUMM (4-12)
[2017-09-11 05:58] LABS: Alanine Aminotransferase 30 U/L (16-61); Albumin 3.5 G/DL (3.4-5.0); Alkaline Phosphatase 118 U/L (45-117); Aspartate Amino Transferase 20 U/L (0-37); Bilirubin,Indirect 0.4 MG/DL (0.0-1.0); Blood Urea Nitrogen 46 MG/DL (7-18); Calcium 8.2 MG/DL (8.5-10.1); Glucose 95 MG/DL (74-106); Magnesium 2.8 MG/DL (1.8-2.4); Osmolality,Calculated 290.4 MOS/KG (273-304); Potassium 3.9 MMOL/L (3.5-5.1); Sodium 140 MMOL/L (136-145); Total Protein 6.3 G/DL (6.4-8.3)
[2017-09-11 06:05] LABS: Troponin I Only 0.578 NG/ML (0.00-0.045)
[2017-09-11] MEDS: ALBUTEROL/IPRATROPIUM 3 ML NEB RESP TX SCH ×4 (08:45→19:32)
[2017-09-11] MEDS: LISINOPRIL 5 MG TABLET PO SCH (09:26)
[2017-09-11] MEDS: FERROUS SULFATE 325 MG TABLET PO SCH (09:26)
[2017-09-11] MEDS: PANTOPRAZOLE 40 MG TABLET PO SCH (09:26)
[2017-09-11] MEDS: ISOSORBIDE MONONITRATE 30 MG TABLET PO SCH (09:26)
[2017-09-11] MEDS: DOCUSATE SODIUM 100 MG CAPSULE PO SCH (09:27)
[2017-09-11] MEDS: METOPROLOL SUCCINATE XL 25 MG TABLET PO SCH (09:27)
[2017-09-11] MEDS: CHLORHEXIDINE 0.12% ORAL RINSE 60 ML BOTTLE SWISH/SPIT SCH ×2 (09:27→20:46)
[2017-09-11] MEDS: metFORMIN 500 MG TABLET PO SCH (09:27)
[2017-09-11] MEDS: ASPIRIN CHEW 81 MG TABLET PO SCH (09:27)
[2017-09-11] MEDS: ATORVASTATIN 80 MG TABLET PO SCH (20:45)
[2017-09-11] MEDS: ZALEPLON 5 MG CAPSULE PO PRN ×2 (20:45→23:33)
[2017-09-11] MEDS: ACETAMINOPHEN 325 MG TABLET PO PRN (20:46)
[2017-09-11] MEDS: KETOROLAC 15 MG/1 ML VIAL IV PRN (23:33)
[2017-09-12 04:47] LABS: Basophils % 0.2 % (0.0-0.8); Eosinophils # 0.6 10*3/uL (0.0-0.87); Hemoglobin 10.1 GM/DL (14.0-18.0); Immature Granulocytes % 0.4 %; Immature Granulocytes Absolute 0.04 #; Lymphocytes % 17.9 % (21.2-54.2); Mean Corpuscular HGB Conc 32.6 GM/DL (32-36); Mean Corpuscular Hemoglobin 29 PG (27-34); Mean Corpuscular Volume 88.3 FL (87-102); Monocytes # 0.7 10*3/uL (0.11-0.8); Monocytes % 6.5 % (1.7-12.7); Neutrophils # 7.7 10*3/uL (1.4-7.4); Platelet Count 212 T/CUMM (130-400); Red Blood Count 3.51 MC/CUMM (3.8-5.5); Red Cell Distribution Width 15.5 % (9.3-17.3); White Blood Count 10.9 T/CUMM (4-12)
[2017-09-12 05:31] LABS: Alanine Aminotransferase 32 U/L (16-61); Albumin 3.2 G/DL (3.4-5.0); Alkaline Phosphatase 113 U/L (45-117); Aspartate Amino Transferase 27 U/L (0-37); Bilirubin,Indirect 0.7 MG/DL (0.0-1.0); Blood Urea Nitrogen 42 MG/DL (7-18); Calcium 8.7 MG/DL (8.5-10.1); Glucose 119 MG/DL (74-106); Magnesium 2.7 MG/DL (1.8-2.4); Osmolality,Calculated 290.4 MOS/KG (273-304); Sodium 140 MMOL/L (136-145); Total Protein 5.8 G/DL (6.4-8.3)
[2017-09-12 05:32] LABS: Troponin I Only 0.331 NG/ML (0.00-0.045)
[2017-09-12] MEDS: ALBUTEROL/IPRATROPIUM 3 ML NEB RESP TX SCH ×4 (07:01→18:40)
[2017-09-12] MEDS: metFORMIN 500 MG TABLET PO SCH (09:01)
[2017-09-12] MEDS: FERROUS SULFATE 325 MG TABLET PO SCH (09:02)
[2017-09-12] MEDS: LISINOPRIL 5 MG TABLET PO SCH (09:02)
[2017-09-12] MEDS: DOCUSATE SODIUM 100 MG CAPSULE PO SCH (09:02)
[2017-09-12] MEDS: METOPROLOL SUCCINATE XL 25 MG TABLET PO SCH (09:02)
[2017-09-12] MEDS: PANTOPRAZOLE 40 MG TABLET PO SCH (09:02)
[2017-09-12] MEDS: ASPIRIN CHEW 81 MG TABLET PO SCH (09:02)
[2017-09-12] MEDS: ISOSORBIDE MONONITRATE 30 MG TABLET PO SCH (09:02)
[2017-09-12] MEDS: CHLORHEXIDINE 0.12% ORAL RINSE 60 ML BOTTLE SWISH/SPIT SCH ×2 (09:03→21:59)
[2017-09-12] MEDS ORDERED: FUROSEMIDE 20 MG TABLET PO ONE (14:52)
[2017-09-12] MEDS: oxyCODONE/ACETAMINOPHEN 5-325 MG TABLET PO PRN (18:06)
[2017-09-12] MEDS: ATORVASTATIN 80 MG TABLET PO SCH (21:59)
[2017-09-13] MEDS: oxyCODONE/ACETAMINOPHEN 5-325 MG TABLET PO PRN ×2 (02:18→08:45)
[2017-09-13] MEDS: ALBUTEROL/IPRATROPIUM 3 ML NEB RESP TX SCH (07:25)
[2017-09-13] MEDS: ISOSORBIDE MONONITRATE 30 MG TABLET PO SCH (08:45)
[2017-09-13] MEDS: FERROUS SULFATE 325 MG TABLET PO SCH (08:45)
[2017-09-13] MEDS: METOPROLOL SUCCINATE XL 25 MG TABLET PO SCH (08:45)
[2017-09-13] MEDS: metFORMIN 500 MG TABLET PO SCH (08:45)
[2017-09-13] MEDS: PANTOPRAZOLE 40 MG TABLET PO SCH (08:46)
[2017-09-13] MEDS: DOCUSATE SODIUM 100 MG CAPSULE PO SCH (08:46)
[2017-09-13] MEDS: ASPIRIN CHEW 81 MG TABLET PO SCH (08:47)
[2017-09-13] MEDS: CHLORHEXIDINE 0.12% ORAL RINSE 60 ML BOTTLE SWISH/SPIT SCH (08:47)
[2017-09-13] MEDS: LISINOPRIL 5 MG TABLET PO SCH (08:47)
[2017-09-13 11:54] VITALS: BP 112/60
[2017-09-13] MEDS ORDERED: INFLUENZA VIRUS VACCINE 0.5 ML SYRINGE IM ONE (15:23)
[2017-09-13] MEDS ORDERED: PNEUMOCOCCAL VACCINE (23 VALENT) 0.5 ML VIAL IM ONE (15:24)
== END 2017-09-13 16:23 | disposition home health service (06) | DRG 233 ==
LOC: N.CL 02:54 → N.CVR 08:55 → SUATTDRO 09:37 → N.CVR 09:37 → N.ICU 09-06 17:25 → N.TELES 09-07 13:38
PROVIDERS: ADMIT Internal Medicine Interventional Cardiology; ATTEND Internal Medicine Clinical Cardiac Electrophysiology
PROC: CLCCHCL (ICD-10-PCS; 2017-09-03 03:15)